=== PATIENT | male | born 1965 | race Caucasian/White ===

== ENCOUNTER 2021-03-30 18:00 | Emergency (ER) | payer OTHER ==
[~2021-03-30] VITALS: Ht 172.7 cm; Wt 80.2 kg
[2021-03-30] MEDS ORDERED: NEOMY/BACITR/POLYMYXIN OINT PACKET. TP ONE (19:30)
[2021-03-30] MEDS ORDERED: LIDOCAINE 2%/EPI 1:100,000 20 ML VIAL. INJ ONE (19:30)
[2021-03-30] MEDS ORDERED: IBUPROFEN 200 MG TABLET. PO ONE (20:00)
--- NOTE | 2021-03-30 20:41 | RAD ---
Exam Date: 03/30/2021 7:56 PM XR HAND_LEFT 3 VIEWS Indication: Reason: pain/laceration from garage door spring / Spl. Instructions: / History: FINDINGS/ IMPRESSION: No acute fracture or dislocation. Moderate degenerative changes are noted. The soft tissues are wit hin normal limits. Electronically signed by: Daniel Lozano MD (03/30/2021 8:38 PM) [facility]
--- NOTE | 2021-03-30 21:44 | PHYS DOC ---
Past Medical History Past Medical History: No Pertinent History Past Surgical History: Other Additional Past Surgical Histo: shoulder and knee surgery Smoking Status: Never Smoker Alcohol Use: None Drug Use: None General Adult EDM: Chief Complaint: HAND PROBLEM HPI: HPI: Patient is a 55 year old [f__sex] who presents with [] Review of Systems: Review of Systems: Constitutional: Denies fever or chills Eyes: Denies redness or eye pain HENT: Denies nasal congestion or sore throat Respiratory: Denies cough or shortness of breath Cardiovascular: Denies chest pain or palpitations GI: Denies abdominal pain, nausea, or vomiting : Denies dysuria or hematuria Musculoskeletal: Denies back pain or joint pain Integument: Denies rash or skin lesions Neurologic: Denies headache, focal weakness or sensory changes Complete systems were reviewed and found to be within normal limits, except as documented in this note. Heart Score: C/O Chest Pain: N/A Current Medications: Current Medications Medications (Trade) Dose Ordered Sig/Mer Start Time Stop Time Status Last Admin Dose Admin Ibuprofen (Motrin) 600 mg 1X ONCE 03/30/21 20:00 03/30/21 20:07 DC 03/30/21 20:41 600 MG Lidocaine/ Epinephrine (LIDOCAINE 2%-EPI 1:100,000 multi-dose) 20 ml 1X ONCE 03/30/21 19:30 03/30/21 19:54 DC 03/30/21 20:41 20 ML Neomycin/ Polymyxin/ Bacitracin (Triple Antibiotic Ointment) 1 pkt 1X ONCE 03/30/21 19:30 03/30/21 19:54 DC 03/30/21 20:41 1 PKT Allergies: Allergies: Allergies Coded Allergies Type Severity Reaction Last Updated Verified No Known Drug Allergies 12/09/14 No Physical Exam: PE: Constitutional: Well developed, well nourished, no acute distress, non-toxic appearance HENT: Normocephalic, atraumatic Eyes: PERRL, EOMI, conjunctiva normal, no discharge Neck: Normal range of motion, no tenderness, supple Lungs & Thorax: No respiratory distress, equal chest rise and fall Abdomen: Soft, no tenderness Skin: Warm, dry, no erythema, no rash Back: No tenderness, no CVA tenderness Extremities: No tenderness, ROM intact, no edema Neurologic: Alert and oriented X 3, normal motor function, normal sensory function, no focal deficits noted Psychologic: Affect normal, judgment normal Current Patient Data: Vital Signs: Vital Signs Date Time Temp Pulse Resp B/P (MAP) Pulse Ox O2 Delivery O2 Flow Rate FiO2 03/30/21 18:01 98.6 89 10 189/117 (141) 98 Room Air 98.6 EKG: EKG: [] Radiology/Procedures: Radiology/Procedures: PROCEDURE: HAND LEFT 3V Exam Date: 03/30/2021 7:56 PM XR HAND_LEFT 3 VIEWS Indication: Reason: pain/laceration from garage door spring / Spl. Instructions: / History: FINDINGS/ IMPRESSION: No acute fracture or dislocation. Moderate degenerative changes are noted. The soft tissues are within normal limits. Electronically signed by: Daniel Lozano MD (03/30/2021 8:38 PM) [facility] Course & Med Decision Making: Course & Med Decision Making Pertinent Labs and Imaging studies reviewed. (See chart for details) [] Dragon Disclaimer: Dragvianca Disclaimer: This electronic medical record was generated, in whole or in part, using a voice recognition dictation system. Splinting Splinting : Location: Left hand Pre-Made Type: SUSU bandage Pre-Proc Neuro Vasc Exam: normal Post-Proc Neuro Vasc Exam: normal, abnormal Laceration/Wound Repair Laceration/Wound Repair : Suture Size/Type: 4:0, nylon Number of Sutures: 15 Progress Verbal consent obtained. Time out performed. Hand hygiene utilized. Wound cleaned with ChloraPrep. Anesthesia obtained via a 25-gauge hypodermic needle with (4) mL's of lidocaine 2% with epinephrine. Copious irrigation performed. Wound well approximated with 4-0 Nylon x 14 simple interrupted and 1 horizontal mattress. Patient tolerated procedure well and without difficulty. Empiric antibiotic ointment applied prior to sterile dressing. SUSU bandage also applied. Departure Departure Impression: Primary Impression: Laceration of left palm Qualified Codes: S61.412A - Laceration without foreign body of left hand, initial encounter Disposition: HOME / SELF CARE / HOMELESS Condition: STABLE Referrals: NO PCP (PCP) Patient Instructions: Laceration Care, Adult, [id number] Additional Instructions: Do not soak your wound. You may shower. Clean wound daily with soap and water. Change dressing 2 times daily. Use over the counter antibiotic ointment with each dressing change. Sutures need to be removed in 10-14 days. Present to your family doctor or local urgent care for removal. You may also present to the ED but it will be an additional visit/charge. After suture removal you may use Vitamin E ointment to soften the wound and prevent scarring. Use over the counter Tylenol and/or Ibuprofen for pain and discomfort. ENRIQUE SANTA DO Mar 30, 2021 21:44
[2021-03-30 22:10] VITALS: BP 160/98
== END 2021-03-30 22:20 | disposition home or self-care (01) ==
LOC: ER 18:00
DX: S61.412A Laceration without foreign body of left hand, initial encounter (principal); Y28.8XXA Contact with other sharp object, undetermined intent, initial encounter; Y93.89 Activity, other specified; Y92.89 Other specified places as the place of occurrence of the external cause; Y99.8 Other external cause status
CPT/HCPCS: 12001; 73130; 99283; J3490